=== PATIENT | male | born 1980 ===

== ENCOUNTER → 2024-05-22 | Day surgery (SDC) | payer OTHER ==
[~2024-05-22] MED LIST: HYDROmorphone 0.5 MG/0.5 ML SYRINGE IVP PRN; LACTATED RINGERS 1,000 ML IV SCH; LIDOCAINE 1% (10MG/ML) FOR IV START INTRADERMA PRN; LIDOCAINE 1% INJ 10MG/ML (20 ML MDV) ONE; MIDAZOLAM 2 MG/2 ML VIAL IV PRN; MIDAZOLAM 2 MG/2 ML VIAL ONE; PHENYLEPHRINE 10 MG/ML VIAL ONE; PROPOFOL 10 MG/ML 20 ML VIAL IV ONE; SUCCINYLCHOLINE CHLORIDE 200 MG/10 ML VIAL IV ONE; fentaNYL (PF) 50 MCG/ML 2 ML AMP IVP PRN; fentaNYL (PF) 50 MCG/ML 2 ML AMP ONE
[2024-05-22] MEDS: LACTATED RINGERS 1,000 ML IV SCH (12:03)
[2024-05-22] MEDS: IV FLUID CONTINUATION 1,000 ML IV ONE (12:03)
[2024-05-22 12:08] LABS: Glucose,Whole Blood 72 mg/dL (70-110)
[2024-05-22] MEDS: DEXAMETHASONE SOD PHOSPHATE 4 MG/ML 1 ML VIAL IV ONE (12:14)
[2024-05-22] MEDS: ONDANSETRON 4 MG/2 ML VIAL IVP ONE (12:14)
[2024-05-22] MEDS: LACTATED RINGERS 1,000 ML IV ONE (13:50)
--- NOTE | 2024-05-22 14:12 | FL ---
EXAMINATION TYPE: FL bronchoscopy DATE OF EXAM: 05/22/2024 COMPARISON: NONE HISTORY: Fluoroscopy TECHNIQUE: Fluoroscopy. FINDINGS: Fluoroscopic guidance was provided. A total of 40 seconds of fluoroscopic time was utiliz ed during the procedure. Total dose area product (DAP) in uGy*m?, mGy*cm? (or similar): . IMPRESSION: As Above. [facility], , 05/22/2024 2:09 PM
--- NOTE | 2024-05-22 14:16 | P.PCN ---
Date of Procedure: 05/22/24 Preoperative Diagnosis: Interstitial lung disease, rule out sarcoidosis Postoperative Diagnosis: Same Procedure(s) Performed: Flexible bronchoscopy, transbronchial biopsy of the right upper lobe, transbronchial biopsy of the right lower lobe, bronchioalveolar lavage of the lingula. Anesthesia: MAC Surgeon: Leila Dempsey Estimated Blood Loss (ml): 0 Condition: stable Disposition: same day Operative Findings: There is a flexible bronchoscopy that was done in the endoscopy suite. The patient was intubated and placed on the mechanical ventilator. Intubation process was done by WORKING MANAGER and anesthesia group. The patient was intubated by #8 orotracheal tube. As the patient was being adequately oxygenated and ventilated, the flexible bronchoscope was inserted through the orotracheal tube and was advanced to the lower trachea. Examination of tracheobronchial tree was done and the examination was within normal limits. The visualized airways included the distal trachea, main negrito, bilateral mainstem bronchi, right upper lobe bronchus, bronchus intermedius, right middle lobe bronchus, right lower lobe bronchus endobronchial stent segments on the right and examination of the left side including the left mainstem bronchus, left upper lobe bronchus, left lower lobe bronchus and the various 8 segments on the left. No significant abnormalities identified. The bronchoscope was wedged in the superior segment of the lingula and the bronchioloalveolar lavage was done. A total of 80 cc of saline was infused and 20 cc was aspirated without any major difficulties. Following that, under fluoroscopic guidance, transbronchial biopsy of the middle segment of the right lower lobe and transbronchial biopsies of the right upper lobe was done. A total of 7-8 biopsies were obtained from each lobe. No complications. No bleeding. The flexible bronchoscope was removed and the patient was transferred to recovery in stable condition. Chest x-ray is to follow. Discharged home in stable
[2024-05-22 14:26] VITALS: RESP 16
--- NOTE | 2024-05-22 14:38 | XR ---
EXAMINATION TYPE: XR chest 1V DATE OF EXAM: 05/22/2024 COMPARISON: 07/06/2022 HISTORY: Dark diagnosis TECHNIQUE: Single frontal view of the chest is obtained. FINDINGS: There is no focal air space opacity, pleural effusion, or pneumothorax seen. The cardiac silhouette size is within normal limits. The osseous structures are intact. There is diffuse inters titial pattern. There is no pleural effusion or pneumothorax. Heart size normal. Osseous structures i ntact. More nodular 1.5 similar density in the right midlung. IMPRESSION: 1. There is now diffuse interstitial pattern which could represent chronic interstitial lung disease. Given this has progressed from prior exam and a superimposed interstitial pneumonitis in the differe ntial diagnosis. Additionally, there is now a 1.5 cm nodule in the right midlung. Recommend CT of the chest. [facility], , 05/22/2024 2:36 PM
[2024-05-22 15:00] VITALS: PULSE 73
[2024-05-22 15:11] VITALS: BP 107/69; TEMP 65
[2024-05-22 18:59] LABS: Appearance,BF Cloudy (Clear); RBC, Body Fluid 1825 /UL (0-2000)
[2024-05-23 09:28] LABS: Nucleated Cells, Body Fluid 15 /UL
== END ==
LOC: ORWHC2ENDO 11:28
PROVIDERS: ATTEND Internal Medicine Critical Care Medicine
DX: D86.9 Sarcoidosis, unspecified (principal); J84.9 Interstitial pulmonary disease, unspecified; I12.9 Hypertensive chronic kidney disease with stage 1 through stage 4 chronic kidney disease, or unspecified chronic kidney disease; N18.31 Chronic kidney disease, stage 3a; E83.52 Hypercalcemia; Z79.899 Other long term (current) drug therapy
CPT/HCPCS: 87798 ×3; 87496; 87498; 87529; 88108; 88305; 89050; 88312; 88313; 88342; 87502; 87634; 87070; 87205; 87116; 87102; 87206; 87635; 71045; 31628; 31632; 31624; J2250; J0330; J1100; J2405; J2001; J3010; J2704; J2371